=== PATIENT | female | born 1975 | race African-American/Black ===

== ENCOUNTER 2020-03-09 11:06 | Inpatient (IN) | payer MEDICARE, MEDICAID ==
[~2020-03-09] VITALS: Ht 167.6 cm; Wt 68.0 kg
[2020-03-09] MEDS ORDERED: METHYLERGONOVINE MALEATE 0.2 MG/ML IM PRN (13:00)
[2020-03-09] MEDS ORDERED: LACTATED RINGERS 1,000 ML IV SCH (13:00)
[2020-03-09] MEDS ORDERED: DEXT 5%/LR + PITOCIN 20UNITS/L 1,000 ML IV SCH ×2 (13:00→17:00)
[2020-03-09 14:07] LABS: CLARITY URINE CLEAR (CLEAR); COLOR URINE YELLOW (YELLOW); KETONES URINE TRACE (NEGATIVE); LEUKOCYTE ESTERASE URINE NEGATIVE (NEGATIVE); NITRITE URINE NEGATIVE (NEGATIVE); OCCULT BLOOD URINE NEGATIVE (NEGATIVE); PH URINE 5.5 (4.5-8.0); PROTEIN URINE TRACE (NEGATIVE); SPECIFIC GRAVITY URINE 1.027 (1.005-1.030); UROBILINOGEN URINE 0.2 E.U./dL (0.2-1.0)
[2020-03-09 14:08] LABS: BASOPHILS % 0.2 % (0.0-2.0); EOSINOPHILS % 0.7 % (0.0-5.0); HEMATOCRIT. 31.1 % (36.0-48.0); HEMOGLOBIN. 10.3 g/dL (12.0-16.0); LYMPHOCYTES % 19.3 % (20.0-50.0); MEAN CORPUSCULAR HEMOGLOBIN 29.3 pg (28.0-32.0); MEAN CORPUSCULAR VOLUME 88.5 fL (81.0-99.0); MEAN PLATELET VOLUME 9.7 fl (7.4-10.4); MONOCYTES % 7.7 % (2.0-8.0); NEUTROPHILS % 72.1 % (40.0-76.0); PLATELET 180 x1000/uL (130-400); RED BLOOD CELL COUNT 3.51 mill/uL (4.2-5.4); RED CELL DISTRIBUTION WIDTH 14.6 % (11.6-14.6)
[2020-03-09 14:09] LABS: CHLORIDE 108 mEq/L (98-107)
[2020-03-09 14:14] LABS: INR 0.9; PARTIAL THROMBOPLASTIN TIME 27.8 sec (23.4-31.0); PROTHROMBIN TIME 9.9 sec (9.6-11.0)
[2020-03-09 14:17] LABS: *AMPHETAMINES SCREEN URINE NEGATIVE (NEGATIVE); *BENZODIAZEPINES SCREEN URINE NEGATIVE (NEGATIVE); *COCAINE SCREEN URINE NEGATIVE (NEGATIVE); CANNABINOID URINE SCREEN NEGATIVE (NEGATIVE); OPIATES URINE SCREEN NEGATIVE (NEGATIVE); PHENCYCLIDINE URINE SCREEN NEGATIVE (NEGATIVE)
[2020-03-09 14:18] LABS: METHADONE URINE SCREEN NEGATIVE (NEGATIVE)
[2020-03-09 14:19] LABS: *BARBITURATES SCREEN URINE NEGATIVE (NEGATIVE)
[2020-03-09] MEDS ORDERED: CITRIC ACID/SODIUM CITRATE SOLN 30ML UDC PO NR (14:45)
[2020-03-09] MEDS ORDERED: FENTANYL CITRATE/PF 50MCG/ML 2ML VIAL ONE (14:59)
[2020-03-09] MEDS ORDERED: GLYCOPYRROLATE 0.2 MG/ML 2ML VIAL ONE (15:00)
[2020-03-09] MEDS ORDERED: MORPHINE SULFATE/PF 1MG/ML 10ML AMP ONE (15:00)
[2020-03-09] MEDS ORDERED: CEFAZOLIN SODIUM 1000MG/VIAL ONE (15:00)
[2020-03-09] MEDS ORDERED: OXYTOCIN 10 UNITS/ML 1ML ONE ×2 (15:00→15:53)
[2020-03-09] MEDS ORDERED: ONDANSETRON HCL 4MG/2ML INJ ONE (15:00)
[2020-03-09] MEDS ORDERED: DIPHENHYDRAMINE 50MG/ML VIAL ONE (15:38)
[2020-03-09] MEDS ORDERED: LIDOCAINE HCL/PF 1% 10 MG/ML 5ML VIAL ONE (15:39)
[2020-03-09] MEDS ORDERED: EPHEDRINE SULFATE 50MG/ML VIAL ONE (15:48)
[2020-03-09] MEDS ORDERED: KETOROLAC 60MG/2ML VIAL IM ONE (15:55)
[2020-03-09 16:01] LABS: HEPATITIS B SURFACE ANTIGEN NEGATIVE
[2020-03-09] MEDS ORDERED: BISACODYL 10MG SUPP PR PRN (16:15)
[2020-03-09] MEDS ORDERED: RHO(D) IMMUNE GLOBULIN 300 MCG/SYR IM PRN (16:15)
[2020-03-09] MEDS ORDERED: KETOROLAC 30MG/ML VIAL IV PRN (16:15)
[2020-03-09] MEDS ORDERED: IBUPROFEN 400MG TABLET PO PRN (16:15)
[2020-03-09] MEDS ORDERED: DIPHENHYDRAMINE 50MG/ML VIAL IV PRN (17:00)
[2020-03-09] MEDS ORDERED: NALOXONE HCL 0.4 MG/ML 1ML VIAL IV PRN (17:00)
[2020-03-09] MEDS ORDERED: BUTORPHANOL TARTRATE 2 MG/ML VIAL IV PRN (17:00)
[2020-03-09 21:00] VITALS: BP 135/87
[2020-03-09] MEDS: KETOROLAC 30MG/ML VIAL IV SCH (23:55)
[2020-03-10] VITALS: BP 130/78
[2020-03-10 04:00] VITALS: BP 136/79
[2020-03-10] MEDS: KETOROLAC 30MG/ML VIAL IV SCH (05:44)
[2020-03-10 06:55] LABS: BASOPHILS % 0.1 % (0.0-2.0); EOSINOPHILS % 0.1 % (0.0-5.0); HEMATOCRIT. 25.5 % (36.0-48.0); HEMOGLOBIN. 8.6 g/dL (12.0-16.0); MEAN CORPUSCULAR HEMOGLOBIN 29.7 pg (28.0-32.0); MEAN CORPUSCULAR VOLUME 87.9 fL (81.0-99.0); MEAN PLATELET VOLUME 9.5 fl (7.4-10.4); MONOCYTES % 9.3 % (2.0-8.0); NEUTROPHILS % 79.5 % (40.0-76.0); PLATELET 152 x1000/uL (130-400); RED CELL DISTRIBUTION WIDTH 14.8 % (11.6-14.6)
[2020-03-10 07:30] VITALS: BP 134/78
[2020-03-10 14:00] VITALS: BP 136/76
[2020-03-10] MEDS: IBUPROFEN 800MG TABLET PO PRN ×2 (15:26→21:05)
[2020-03-10 19:30] VITALS: BP 123/80
[2020-03-11 04:00] VITALS: BP 123/74
[2020-03-11] MEDS: IBUPROFEN 800MG TABLET PO PRN ×2 (04:39→10:47)
[2020-03-11 07:45] VITALS: BP 130/85
== END 2020-03-11 11:20 | disposition home or self-care (01) | DRG 788 ==
LOC: OBSVTOIN 11:06 → 8 EST LDRP 11:06 → 8EST 17:45 → 8 EST LDRP 17:51 → 8EST 21:38
PROVIDERS: ADMIT Obstetrics & Gynecology; ATTEND Obstetrics & Gynecology
PROC: 10D00Z1 Extraction of Products of Conception, Low, Open Approach (ICD-10-PCS; principal; 2020-03-09)
DX: O34.211 Maternal care for low transverse scar from previous cesarean delivery (principal); O13.4 Gestational [pregnancy-induced] hypertension without significant proteinuria, complicating childbirth; Z20.828 Contact with and (suspected) exposure to other viral communicable diseases; Z3A.39 39 weeks gestation of pregnancy; Z37.0 Single live birth
CPT/HCPCS: 36415; 80053; 80305; 81003; 84550; 85025; 85384; 86592; 86703; 86762; 86850; 86900; 87340; 87426; 88307; J0690; J1200; J1885; J2274; J2405; J2590; J3010; J3490; J7120; A4315